=== PATIENT | male | born 1960 | race Caucasian/White ===

== ENCOUNTER 2019-11-02 16:28 | Emergency (ER) | payer BC, SELFPAY ==
--- OUTSIDE RECORDS SUMMARY | 2019-11-02 16:30 | XMS REPORT | Summary of Care ---
:1960 Author Name Deepthi Polanco Address [place] Physicians Unavailable , Care Team Providers Name Role Phone VERONIQUE MARTINES M.D. Unavailable Unavailable Deepthi Polanco Unavailable Unavailable VERONIQUE MARTINES MD Unavailable Unavailable CATERINA HENDRICKSON [place], CARROLL SANDHU Unavailable Unavailable Unavailable Unavailable Unavailable Functional Status Name Dates Details Functional status health issues are not documented Status: Name Dates Details Cognitive status health issues are not documented Status: Problems Name Dates Details CAD (coronary artery disease) (414.00, I25.10) Status: Active SOB (shortness of breath) on exertion (786.05, R06.02) Status: Active CHF (congestive heart failure) (428.0, I50.9) Status: Active Past myocardial infarction (412, I25.2) Status: Active Medications Name Dates Details Aspirin Low Dose 81 MG TABS Refills: 0 Active Atorvastatin Calcium 40 MG Oral Tablet TAKE 1 TABLET AT BEDTIME. Quantity: 1 Refills: 3 BOBBI M.D., PRAKASHActive 90 Tablet Bottle Lisinopril 5 MG Oral Tablet TAKE 1 TABLET DAILY Quantity: 90 Refills: 3 BOBBI M.D., PRAKASHActive Metoprolol Tartrate 50 MG Oral Tablet TAKE 1 TABLET TWICE DAILY Quantity: 180 Refills: 3 BOBBI M.D., PRAKASHActive Clopidogrel Bisulfate 75 MG Oral Tablet TAKE 1 TABLET DAILY. Quantity: 90 Refills: 3 BOBBI M.D., PRAKASHActive Allergies and Adverse Reactions Name Dates Details No Known Drug Allergies (Allergy) Status: Active Past Medical History Name Dates Details History of Heart disease (429.9, I51.9) Status: Resolved Procedures Procedure Dates Details History of Cath Stent Placement Completed Immunization Name Dates Details Flublok Intramuscular Solution Comments: Approx Social History Name Dates Details - Status: Name Dates Details Former smoker Vital Signs Date Test Result Details [id number] BP Systolic 104 mm[Hg] Status: Comments: Location: RUE; Position: Sitting BP Diastolic 60 mm[Hg] Status: Comments: Location: RUE; Position: Sitting Height 69 in Status: Weight 191 lb Status: Body Mass Index Calculated 28.21 kg/m2 Status: Body Surface Area Calculated 2.03 m2 Status: Temperature 98.6 f Status: Comments: Method: Oral Heart Rate 73 /min Status: Comments: Quality: Normal Respiration Rate 18 /min Status: Comments: Quality: Normal Physical Findings 0 Status: Comments: Alcohol Screen - How many times in the past yr have you had 5 (for M) or 4 (for F) or 4 (for all > 65yrs) or more drinks in a day? Results Date Description Value Details Results not documented Plan of Care Name Dates Details Planned Observations Planned Goals not documented Planned Encounters Cardiac Rehabilitation Appointment; PRITESH HORTA D.O. On: 01-Sep-2019 10:00 Appointment; BRIAN SARABIA On: 16-Nov-2019 9:00 Appointment; VERONIQUE MARTINES M.D. On: 16-Nov-2019 10:20 Instructions Name Dates Details Instructions not documented Encounters Appointment; VERONIQUE MARTINES M.D. On: 27-Jul-2019 9:20 Encounter Diagnosis: Problem not documented
--- OUTSIDE RECORDS SUMMARY | 2019-11-02 16:30 | XMS REPORT ---
:1960 [facility] Address [address] [place] [address] [address] [place] [address] Care Team Providers Name Role Phone Unavailable Unavailable Unavailable Problems This patient has no known problems. Allergies, Adverse Reactions, Alerts This patient has no known allergies or adverse reactions. Medications This patient has no known medications. Encounters Start End Encounter Admission Attending Care Care Encounter Date/Time Date/Time Type Type Clinicians Facility Department ID 2019-06-20 Inpatient E [facility] CAR [id number] 00:00:00 2019-06-20 2019-06-20 Outpatient [facility] MAGI [id number] 00:24:00 00:24:00
--- NOTE | 2019-11-02 17:58 | RAD REPORT ---
EXAM DESCRIPTION: RAD - Elbow Left 3 View - 11/02/2019 5:44 pm CLINICAL HISTORY: PAIN, acute onset elbow pain with lifting injury COMPARISON: None. FINDINGS: No acute fracture or dislocation. No bone avulsion changes identifiable. There is spurring at the triceps attachment to the olecranon. No avulsion of the bone spur. There is no dislocation or periosteal reaction noted. No elevated posterior fat pad. No air or foreign body in the soft tissu es. IMPRESSION: No acute bone or joint finding identifiable. Concerns for tendon tear or other soft tissue process can be addressed with MR imaging.
--- NOTE | 2019-11-02 18:35 | ER ---
Nurse's Notes [facility] Name: Nino White Age: 59 yrs Sex: Male : 1960 Arrival Date: 11/02/2019 Time: 16:31 Bed 13 Private MD: Diagnosis: Pain in right elbow-Possible tendon tear or other soft tissue injury Presentation: 11/01 16:44 Chief complaint: Patient states: Lifted a cabinet door and just heard L elbow pop. ca1 Reports discomfort with L elbow movement, like it's falling off. Coronavirus screen: Patient denies fever greater than 100.4F, cough, shortness of breath, or difficulty breathing. Proceed with normal triage process. Ebola Screen: Patient negative for fever greater than or equal to 101.5 degrees Fahrenheit, and additional compatible Ebola Virus Disease symptoms Patient denies exposure to infectious person. Patient denies travel to an Ebola-affected area in the 21 days before illness onset. No symptoms or risks identified at this time. Initial Sepsis Screen: Does the patient meet any 2 criteria? No. Patient's initial sepsis screen is negative. Does the patient have a suspected source of infection? No. Patient's initial sepsis screen is negative. Risk Assessment: Do you want to hurt yourself or someone else? Patient reports no desire to harm self or others. Onset of symptoms was November 02, 2019. 16:44 Method Of Arrival: Ambulatory ca1 16:44 Acuity: ALEE 4 ca1 Historical: - Allergies: 16:47 No Known Allergies; ca1 - Immunization history:: Adult Immunizations up to date. - Social history:: Smoking status: Patient reports the use of cigarette tobacco products, smokes one-half pack cigarettes per day. Screenin:35 Abuse screen: Denies threats or abuse. Denies injuries from another. Nutritional ph screening: No deficits noted. Tuberculosis screening: No symptoms or risk factors identified. Fall Risk None identified. Assessment: 18:34 General: Appears in no apparent distress. comfortable, well groomed, Behavior is calm, ph cooperative, appropriate for age. Pain: Complains of pain in left elbow. Neuro: Level of Consciousness is awake, alert, obeys commands, Oriented to person, place, time, situation. Cardiovascular: Capillary refill < 3 seconds in bilateral fingers Patient's skin is warm and dry. Pulses are palpable in right radial artery and left radial artery. Respiratory: Airway is patent Respiratory effort is even, unlabored. Derm: Skin is intact, is healthy with good turgor, Skin is pink, warm \T\ dry. Musculoskeletal: Circulation, motion, and sensation intact. Vital Signs: 16:44 BP 120 / 81; Pulse 71; Resp 17 S; Temp 97.1(TE); Pulse Ox 98% on R/A; Weight 88 kg (R); ca1 Height 5 ft. 10 in. (177.80 cm) (R); Pain 5/10; 16:44 Body Mass Index 27.84 (88.00 kg, 177.80 cm) ca1 ED Course: 16:31 Patient arrived in ED. am2 16:47 Triage completed. ca1 16:47 Arm band placed on. Sling applied on L arm. ca1 17:33 Kwame Bermudez NP is PHCP. pm1 17:33 Amrit Pate MD is Attending Physician. pm1 18:00 Marissa Mackey RN is Primary Nurse. ph 18:35 Patient has correct armband on for positive identification. Bed in low position. Call ph light in reach. Side rails up X 1. Pulse ox on. NIBP on. Door closed. Noise minimized. Warm blanket given. 18:56 No provider procedures requiring assistance completed. Patient did not have IV access ph during this emergency room visit. Administered Medications: 18:51 Drug: [place] 10 mg-325 mg 1 tabs Route: PO; ph 18:56 Follow up: Response: No adverse reaction ph Outcome: 18:34 Discharge ordered by . pm1 18:57 Discharged to home ambulatory, with friend. ph 18:57 Condition: good 18:57 Discharge instructions given to patient, Instructed on discharge instructions, follow up and referral plans. medication usage, Demonstrated understanding of instructions, follow-up care, medications, Prescriptions given X 1. 18:57 Patient left the ED. ph Signatures: Marissa Mackey RN RN Kwame Bermudez NP CODING EDUCATOR pm1 Arely Phillips am2 Cheyanne España RN RN ca1 Corrections: (The following items were deleted from the chart) 16:48 16:44 Pulse 71bpm; Resp 17bpm; Spontaneous; Pulse Ox 98% RA; Temp 97.1F Temporal; 88 kg ca1 Reported; Height 5 ft. 10 in. Reported; BMI: 27.8; Pain 5/10; ca1
--- NOTE | 2019-11-02 18:35 | EDPHYS ---
Physician Documentation [facility] Name: Nino White Age: 59 yrs Sex: Male : 1960 Arrival Date: 11/02/2019 Time: 16:31 Bed 13 Private MD: ED Physician Amrit Pate HPI: 11/01 17:50 This 59 yrs old Male presents to ER via Ambulatory with complaints of Elbow pm1 Injury. 17:50 The patient or guardian complains of pain, that is acute. The complaints affect the pm1 left elbow. Context: The problem was sustained at home, resulted from lifting or pulling, cabinet door. Onset: The symptoms/episode began/occurred today. Treatment prior to arrival includes: no previous treatment. Modifying factors: The symptoms are alleviated by remaining still, the symptoms are aggravated by straightening arm. Associated signs and symptoms: Pertinent positives: muscles of forearm contracted, Pertinent negatives: decreased range of motion. The patient has not experienced similar symptoms in the past. The patient has not recently seen a physician. Historical: - Allergies: 16:47 No Known Allergies; ca1 - Immunization history:: Adult Immunizations up to date. - Social history:: Smoking status: Patient reports the use of cigarette tobacco products, smokes one-half pack cigarettes per day. ROS: 17:50 Constitutional: Negative for fever, chills, and weight loss, Cardiovascular: Negative pm1 for chest pain, palpitations, and edema, Respiratory: Negative for shortness of breath, cough, wheezing, and pleuritic chest pain. 17:50 Skin: Negative for injury, rash, and discoloration, Neuro: Negative for headache, weakness, numbness, tingling, and seizure. 17:50 MS/extremity: Positive for pain, of the left elbow, Negative for decreased range of motion. 17:50 All other systems are negative. pm1 Exam: 17:50 Constitutional: This is a well developed, well nourished patient who is awake, alert, pm1 and in no acute distress. Head/Face: Normocephalic, atraumatic. Chest/axilla: Normal chest wall appearance and motion. Nontender with no deformity. No lesions are appreciated. Cardiovascular: Regular rate and rhythm with a normal S1 and S2. No gallops, murmurs, or rubs. Normal PMI, no JVD. No pulse deficits. Respiratory: Lungs have equal breath sounds bilaterally, clear to auscultation and percussion. No rales, rhonchi or wheezes noted. No increased work of breathing, no retractions or nasal flaring. Back: No spinal tenderness. No costovertebral tenderness. Full range of motion. Skin: Warm, dry with normal turgor. Normal color with no rashes, no lesions, and no evidence of cellulitis. 17:50 Musculoskeletal/extremity: Extremities: grossly normal except: noted in the left elbow: pain with straightening arm fully, There is no evidence of decreased ROM, Pulses: noted to be 2+ in the left radial artery, the left hand Sensation intact. 17:50 Neuro: Exam negative for acute changes, Orientation: is normal, Motor: is normal, moves all fours. Vital Signs: 16:44 BP 120 / 81; Pulse 71; Resp 17 S; Temp 97.1(TE); Pulse Ox 98% on R/A; Weight 88 kg (R); ca1 Height 5 ft. 10 in. (177.80 cm) (R); Pain 5/10; 16:44 Body Mass Index 27.84 (88.00 kg, 177.80 cm) ca1 MDM: 17:33 Patient medically screened. pm1 17:50 Data reviewed: vital signs. Data interpreted: Pulse oximetry: on room air is 98 %. pm1 Interpretation: normal. 18:30 Counseling: I had a detailed discussion with the patient and/or guardian regarding: the pm1 historical points, exam findings, and any diagnostic results supporting the discharge/admit diagnosis, radiology results, the need for outpatient follow up, for definitive care, a orthopedic surgeon, MRI, to return to the emergency department if symptoms worsen or persist or if there are any questions or concerns that arise at home. 11/01 16:49 Order name: XRAY Elbow LEFT 3 view ca1 11/01 17:42 Order name: Sling; Complete Time: 18:33 pm1 Administered Medications: 18:51 Drug: [place] 10 mg-325 mg 1 tabs Route: PO; ph 18:56 Follow up: Response: No adverse reaction ph Disposition: 11/02 07:40 Co-signature as Attending Physician, Amrit Pate MD. rn Disposition: 11/02/19 18:34 Discharged to Home. Impression: Pain in right elbow - Possible tendon tear or other soft tissue injury. - Condition is Stable. - Discharge Instructions: How to Use a Sling. - Prescriptions for Tylenol- Codeine #3 300-30 mg Oral Tablet - take 2 tablets by ORAL route every 6 hours As needed; 20 tablet. - Medication Reconciliation Form, Thank You Letter, Antibiotic Education, Prescription Opioid Use form. - Follow up: Emergency Department; When: As needed; Reason: Worsening of condition. Follow up: Private Physician; When: 2 - 3 days; Reason: Recheck today's complaints, Continuance of care, Re-evaluation by your physician. - Problem is new. - Symptoms have improved. Signatures: Dispatcher [employer] EDMS Amrit Pate MD MD rn Marissa Mackey RN RN Kwame Bermudez NP [employer] FORMER pm1 Cheyanne España RN RN [facility] Corrections: (The following items were deleted from the chart) 11/01 18:57 18:34 11/02/2019 18:34 Discharged to Home. Impression: Pain in right elbow - Possible ph tendon tear or other soft tissue injury. Condition is Stable. Forms are Medication Reconciliation Form, Thank You Letter, Antibiotic Education, Prescription Opioid Use. Follow up: Emergency Department; When: As needed; Reason: Worsening of condition. Follow up: Private Physician; When: 2 - 3 days; Reason: Recheck today's complaints, Continuance of care, Re-evaluation by your physician. Problem is new. Symptoms have improved. pm1
[2019-11-02] MEDS ORDERED: HYDROCODONE/APAP 10/325 TAB ONE (18:57)
[2019-11-02 19:23] VITALS: BP 120/81; TEMP 97.1; O2SAT 98
== END 2019-11-02 18:57 | disposition home or self-care (01) ==
LOC: ER 16:28
DX: M25.522 Pain in left elbow (principal); F17.210 Nicotine dependence, cigarettes, uncomplicated
CPT/HCPCS: 99283